=== PATIENT | female | born 1995 | race Caucasian/White ===

== ENCOUNTER 2017-03-13 15:37 | Emergency (ER) | payer SELFPAY ==
[~2017-03-13] VITALS: Ht 167.6 cm; Wt 56.0 kg
[~2017-03-13 15:37] MED LIST: ACET325T14 PO; ALPR-475 PO; CYCL5TAB PO; NEFA100T PO; OXYC-302 PO; PNV1TABL47 PO; QUET100T4 PO
[2017-03-13 15:40] VITALS: BP 128/84
[2017-03-13] MEDS ORDERED: ALBUTEROL/IPRATROPIUM 2.5MG/0.5MG, 3 ML NPPB SCH (16:30)
[2017-03-13] MEDS ORDERED: ALBUTEROL/IPRATROPIUM 2.5MG/0.5MG, 3 ML ONE (17:41)
== END 2017-03-13 18:46 | disposition home or self-care (01) ==
LOC: ED 17:55
DX: J45.31 Mild persistent asthma with (acute) exacerbation (principal); Z87.01 Personal history of pneumonia (recurrent)
CPT/HCPCS: 71020; 93005; 94640; 99284; J7620

== ENCOUNTER 2017-03-24 14:05 | Emergency (ER) | payer MEDICAID, OTHER ==
[~2017-03-24] VITALS: Ht 167.6 cm; Wt 54.4 kg
[2017-03-24] MEDS: ALBUTEROL/IPRATROPIUM 2.5MG/0.5MG, 3 ML NPPB SCH ×2 (14:38→14:39)
[2017-03-24] MEDS ORDERED: ALBUTEROL/IPRATROPIUM 2.5MG/0.5MG, 3 ML ONE ×3 (14:39→15:28)
[2017-03-24] MEDS ORDERED: ALBUTEROL/IPRATROPIUM 2.5MG/0.5MG, 3 ML NPPB ONE (15:30)
[2017-03-24 15:48] VITALS: BP 114/77
== END 2017-03-24 15:55 | disposition home or self-care (01) ==
LOC: ED 15:30
DX: J45.901 Unspecified asthma with (acute) exacerbation (principal); J15.9 Unspecified bacterial pneumonia; Z87.891 Personal history of nicotine dependence
CPT/HCPCS: 71020; 93005; 94640; 99284; J7512; J7620